=== PATIENT | male | born 1950 | race African-American/Black ===

== ENCOUNTER 2019-12-13 21:19 | Inpatient (IN) | payer MEDICARE, MEDICAID ==
[~2019-12-13] VITALS: Ht 172.7 cm; Wt 111.1 kg
[2019-12-13] MEDS ORDERED: ONDANSETRON HCL 4MG/2ML INJ IV STA (21:33)
[2019-12-13] MEDS ORDERED: ALBUTEROL (0.083%) 2.5MG/3ML NEB HHN STA (21:33)
[2019-12-13] MEDS ORDERED: IPRATROPIUM BROMIDE (0.02%) 0.5MG/2.5ML NEB HHN STA (21:33)
[2019-12-13] MEDS ORDERED: CLONIDINE 0.2MG TABLET PO ONE (21:45)
[2019-12-13] MEDS ORDERED: ASPIRIN 81MG TABLET PO ONE (21:45)
[2019-12-13 22:45] LABS: BASOPHILS % 0.4 % (0.0-2.0); EOSINOPHILS % 2.5 % (0.0-5.0); HEMATOCRIT. 46.6 % (42.0-52.0); HEMOGLOBIN. 15.9 g/dL (14.0-18.0); LYMPHOCYTES % 11.2 % (20.0-50.0); MEAN CORPUSCULAR HEMOGLOBIN 29.7 pg (28.0-32.0); MEAN CORPUSCULAR VOLUME 86.9 fL (80.0-94.0); MEAN PLATELET VOLUME 9.4 fl (7.4-10.4); MONOCYTES % 8.3 % (2.0-8.0); NEUTROPHILS % 77.6 % (40.0-76.0); PLATELET 163 x1000/uL (130-400); RED BLOOD CELL COUNT 5.36 mill/uL (4.7-6.1); RED CELL DISTRIBUTION WIDTH 15.6 % (11.6-14.6)
[2019-12-13 22:57] LABS: CHLORIDE 107 mEq/L (98-107)
[2019-12-13 22:57] LABS: BG BASE EXCESS -0.4 mmol/L (-2.0-2.0); BG CARBOXYHEMOGLOBIN 3.5 % (0.5-1.5); BG DEOXYHEMOGLOBIN 11.8 % (0.0-5.0); BG FRACTION INSPIRED OXYGEN 21; BG METHEMOGLOBIN 0.2 % (0.0-1.5); BG OXYGEN SATURATION 87.7 % (92.0-98.5); BG OXYHEMOGLOBIN 84.5 % (94.0-97.0); BG PCO2 48.8 mmHg (35.0-45.0); BG PH 7.344 (7.350-7.450); BG PO2 53.7 mmHg (75.0-100.0); BG SAMPLE SITE RIGHT RADIAL; BG VENT MODE ROOM AIR
[2019-12-13 22:58] LABS: PARTIAL THROMBOPLASTIN TIME 23.9 sec (23.4-31.0); PROTHROMBIN TIME 10.5 sec (9.6-11.0)
[2019-12-14] MEDS ORDERED: ASPIRIN 81MG TABLET PO ONE (00:15)
[2019-12-14] MEDS ORDERED: ALBUTEROL 6.7GM HFA INHALER ORI PRN (09:15)
[2019-12-14] MEDS ORDERED: ONDANSETRON HCL 4MG/2ML INJ IV PRN (09:15)
[2019-12-14] MEDS ORDERED: AMLODIPINE 5MG TABLET PO SCH (09:15)
[2019-12-14] MEDS ORDERED: ALBU18HF2 IH (09:39)
[2019-12-14] MEDS ORDERED: LOSA100T32 PO (09:39)
[2019-12-14] MEDS: ENOXAPARIN 30MG/0.3ML SYR SUBCUT SCH ×2 (10:26→20:40)
[2019-12-14] MEDS: CEFTRIAXONE 1 G PREMIX 50 ML IV SCH (11:06)
[2019-12-14 11:37] VITALS: BP 136/86
[2019-12-14 12:00] VITALS: BP 154/79
[2019-12-14] MEDS ORDERED: ALBUTEROL 6.7GM HFA INHALER ORI SCH (12:00)
[2019-12-14 16:00] VITALS: BP 144/59
[2019-12-14 16:49] LABS: *AMPHETAMINES SCREEN URINE NEGATIVE (NEGATIVE); *BARBITURATES SCREEN URINE NEGATIVE (NEGATIVE); *BENZODIAZEPINES SCREEN URINE NEGATIVE (NEGATIVE); METHADONE URINE SCREEN NEGATIVE (NEGATIVE); OPIATES URINE SCREEN NEGATIVE (NEGATIVE)
[2019-12-14 16:50] LABS: CANNABINOID URINE SCREEN NEGATIVE (NEGATIVE); PHENCYCLIDINE URINE SCREEN NEGATIVE (NEGATIVE)
[2019-12-14 16:57] LABS: *COCAINE SCREEN URINE NEGATIVE (NEGATIVE)
[2019-12-14] MEDS: AZITHROMYCIN 250 MG TABLET PO SCH (17:31)
[2019-12-14] MEDS: AMLODIPINE 5MG TABLET PO SCH ×2 (17:31→20:40)
[2019-12-14 17:47] LABS: HEPATITIS B SURFACE ANTIGEN NEGATIVE
[2019-12-14 18:17] LABS: HEPATITIS A AB IGM NEGATIVE (NEGATIVE)
[2019-12-14 20:00] VITALS: BP 151/87
[2019-12-15] VITALS: BP 146/85
[2019-12-15] MEDS ORDERED: ALBUTEROL (0.083%) 2.5MG/3ML NEB HHN SCH
[2019-12-15 04:00] VITALS: BP 136/70
[2019-12-15 05:00] VITALS: BP 154/82
[2019-12-15 08:00] VITALS: BP 161/73
[2019-12-15] MEDS: AMLODIPINE 5MG TABLET PO SCH (08:15)
[2019-12-15] MEDS: AZITHROMYCIN 250 MG TABLET PO SCH (08:15)
[2019-12-15] MEDS: ENOXAPARIN 30MG/0.3ML SYR SUBCUT SCH (08:16)
[2019-12-15 12:00] VITALS: BP 159/81
[2019-12-15] MEDS: CEFTRIAXONE 1 G PREMIX 50 ML IV SCH (12:00)
[2019-12-15] MEDS ORDERED: BENZ-16 MT (12:24)
[2019-12-15 12:38] VITALS: BP 159/81
[2019-12-15] MEDS ORDERED: LOSA100T32 MT (12:55)
== END 2019-12-15 14:15 | disposition home or self-care (01) | DRG 189 ==
LOC: ER 21:19 → 7WST 12-14 00:06 → ENRESERV 12-14 07:54 → 7WST 12-14 15:55 → 6WST 12-15 04:37
PROVIDERS: ADMIT Internal Medicine; ATTEND Internal Medicine
PROC: 5A09357 Assistance with Respiratory Ventilation, Less than 24 Consecutive Hours, Continuous Positive Airway Pressure (ICD-10-PCS; principal; 2019-12-13)
DX: J96.01 Acute respiratory failure with hypoxia (principal); J44.1 Chronic obstructive pulmonary disease with (acute) exacerbation; E11.9 Type 2 diabetes mellitus without complications; I10 Essential (primary) hypertension; E87.6 Hypokalemia; Z20.828 Contact with and (suspected) exposure to other viral communicable diseases; R74.0 Nonspecific elevation of levels of transaminase and lactic acid dehydrogenase [LDH]; E66.9 Obesity, unspecified; I16.0 Hypertensive urgency; D72.810 Lymphocytopenia; Z71.3 Dietary counseling and surveillance; Z68.37 Body mass index [BMI] 37.0-37.9, adult
CPT/HCPCS: 36415; 36600; 71045; 80053; 80305; 82375; 82805; 83880; 84484; 85025; 85379; 86705; 86709; 86803; 87340; 93005; 99291; J0696; J1650; J2405; U0003-CS

== ENCOUNTER 2021-03-20 03:06 | Emergency (ER) | payer MEDICARE, MEDICAID ==
[~2021-03-20] VITALS: Ht 167.6 cm; Wt 100.0 kg
[~2021-03-20 03:06] MED LIST: ALBU18HF2 IH; BENZ-16 MT; LOSA100T32 MT; LOSA100T32 PO
[2021-03-20] MEDS ORDERED: ALBUTEROL (0.083%) 2.5MG/3ML NEB HHN STA (04:49)
[2021-03-20] MEDS ORDERED: IPRATROPIUM BROMIDE (0.02%) 0.5MG/2.5ML NEB HHN STA (04:49)
[2021-03-20] MEDS ORDERED: METHYLPREDNISOLONE SOD SUCC 125 MG/2 ML VIAL IV STA (04:49)
[2021-03-20] MEDS ORDERED: ASPIRIN 325MG EC TABLET PO ONE (05:00)
[2021-03-20] MEDS ORDERED: ASPIRIN 325MG TABLET PO SCH (05:00)
[2021-03-20 05:13] LABS: BASOPHILS % 0.6 % (0.0-2.0); EOSINOPHILS % 2.3 % (0.0-5.0); HEMATOCRIT. 51.6 % (42.0-52.0); HEMOGLOBIN. 17.4 g/dL (14.0-18.0); LYMPHOCYTES % 27.3 % (20.0-50.0); MEAN CORPUSCULAR HEMOGLOBIN 29.2 pg (28.0-32.0); MEAN CORPUSCULAR VOLUME 86.5 fL (80.0-94.0); MEAN PLATELET VOLUME 10.1 fl (7.4-10.4); MONOCYTES % 10.4 % (2.0-8.0); NEUTROPHILS % 59.4 % (40.0-76.0); PLATELET 212 x1000/uL (130-400); RED BLOOD CELL COUNT 5.96 mill/uL (4.7-6.1); RED CELL DISTRIBUTION WIDTH 15.1 % (11.6-14.6)
[2021-03-20] MEDS ORDERED: P50 MT (05:16)
[2021-03-20] MEDS ORDERED: DOXY100C5 MT (05:16)
[2021-03-20] MEDS ORDERED: AMOX-424 MT (05:16)
[2021-03-20] MEDS ORDERED: ALBU90AE INH (05:16)
[2021-03-20 05:31] LABS: CHLORIDE 99 mEq/L (98-107)
[2021-03-20 06:28] VITALS: BP 130/83
== END 2021-03-20 06:32 | disposition home or self-care (01) ==
LOC: ER 03:06
DX: J44.1 Chronic obstructive pulmonary disease with (acute) exacerbation (principal); I45.10 Unspecified right bundle-branch block; I48.91 Unspecified atrial fibrillation; I10 Essential (primary) hypertension; Z79.51 Long term (current) use of inhaled steroids
CPT/HCPCS: 36415; 71045; 80053; 83880; 84484; 85025; 85379; 93005; 94640; 96374; 99285; J2930